=== PATIENT | female | born 1980 | race African-American/Black ===

== ENCOUNTER 2016-10-16 21:37 | Emergency (ER) | payer OTHER ==
[~2016-10-16] VITALS: Ht 177.8 cm; Wt 64.9 kg
[~2016-10-16 21:37] MED LIST: FOLATE1 MG PO; MEXATE2.5 MG; MOTRIN800 MG PO; PLAQUENIL200 M1 PO; VITAMIN D1000 IU PO
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
--- NOTE | 2016-10-16 22:04 | NUR ---
CALLED PATIENT AGAIN, NO RESPONSE
[2016-10-16 22:24] VITALS: BP 149/66
--- NOTE | 2016-10-16 22:32 | NUR ---
PT TAKEN TO OF
--- NOTE | 2016-10-16 22:33 | NUR ---
Dr. Melvin evaluating patient at bedside.
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
--- NOTE | 2016-10-16 22:39 | NUR ---
PT TAKEN TO CT
--- NOTE | 2016-10-16 23:15 | NUR ---
PATIENT AGREED FOR [place] [facility] TO BE INFORMED OF T/C. CALLED [place] #[id number]
[2016-10-16 23:17] VITALS: BP 132/70
--- NOTE | 2016-10-16 23:17 | NUR ---
Patient discharged with v/s stable. Written and verbal after care instructions given and explained BY DR. KING. Patient alert, oriented and verbalized understanding of instructions. Ambulatory with steady gait. All questions addressed prior to discharge. ID band removed. Patient advised to follow up with PMD. Rx of NAPROSYN given. Patient educated on indication of medication including possible reaction and side effects. Opportunity to ask questions provided and answered.
== END 2016-10-16 23:17 | disposition home or self-care (01) ==
LOC: MED 21:37
DX: S09.90XA Unspecified injury of head, initial encounter (principal); Z79.899 Other long term (current) drug therapy; V89.2XXA Person injured in unspecified motor-vehicle accident, traffic, initial encounter; Y93.89 Activity, other specified; Y92.89 Other specified places as the place of occurrence of the external cause; Y99.8 Other external cause status

== ENCOUNTER 2018-10-04 11:22 | Inpatient (IN) | payer OTHER ==
[~2018-10-04] VITALS: Ht 172.7 cm; Wt 64.9 kg
--- NOTE | 2018-10-04 | NUR ---
PT GIVEN NEW ORDER OF NITRO PASTE AND LISNOPRIL 5MG. PT V/S FOLLOWS T 98.1 P 54 R 18 B/P 131/93 02 100% ON ROOM AIR.
[~2018-10-04 11:22] MED LIST changes: -FOLATE1 MG PO; +FOLI1TAB19 PO; +HYDR200T5 PO; +IBUP-974 PO; +MEX2.5; -MEXATE2.5 MG; -MOTRIN800 MG PO; -PLAQUENIL200 M1 PO; -VITAMIN D1000 IU PO; +VITD1000 PO
[2018-10-04 11:27] VITALS: BP 126/86
--- NOTE | 2018-10-04 11:30 | NUR ---
PT AMBULATES TO BED 9
--- NOTE | 2018-10-04 11:39 | NUR ---
38 Y/O F WITH C/O CHEST PAIN. EXPERIENCING CHEST TIGHTNESS AND ACHING. 8/10 RADIATES TO EPIGASTRIC AREA. SYMPTOMS BEGAN THIS MORNING. MD NOTIFIED. WILL CONTINUE TO MONITOR.
[2018-10-04] MEDS ORDERED: NACL 0.9% 1,000 ML IV SCH (11:52)
[2018-10-04] MEDS ORDERED: FAMOTIDINE 20 MG/2 ML VIAL IVP ONE (11:55)
[2018-10-04] MEDS ORDERED: KETOROLAC 30 MG/ML VIAL IVP ONE (11:55)
[2018-10-04 12:18] LABS: BASOPHILS % (AUTO) 0.3 % (0.0-2.0); EOSINOPHILS % (AUTO) 1.2 % (0.0-4.0); HEMATOCRIT 37.3 % (36-48); HEMOGLOBIN 12.3 g/dL (12.0-16.0); LYMPHOCYTES # (AUTO) 1.2 K/uL (2.5-16.5); LYMPHOCYTES % (AUTO) 35.7 % (20.5-51.1); MEAN CORPUSCULAR HEMOGLOBIN 28 pg (27-31); MEAN CORPUSCULAR HGB CONC 33 g/dL (33-37); MEAN CORPUSCULAR VOLUME 84.9 fL (80-94); MONOCYTES # (AUTO) 0.3 K/uL (0.8-1.0); MONOCYTES % (AUTO) 9.7 % (1.7-9.3); NEUTROPHILS # (AUTO) 1.8 K/uL (1.8-7.7); NEUTROPHILS % (AUTO) 53.1 % (42.2-75.2); PLATELET COUNT (AUTO) 144 K/uL (140-450); RED BLOOD CELL COUNT(AUTO) 4.39 MIL/uL (4.20-5.40); RED CELL DISTRIBUTION WIDTH 16.4 % (11.6-13.7); WHITE BLOOD COUNT (AUTO) 3.4 K/uL (4.8-10.8)
[2018-10-04 12:22] LABS: CARBON DIOXIDE 26.9 mmol/L (21-32); CREATININE 0.9 mg/dL (0.6-1.3); POTASSIUM 3.9 mmol/L (3.5-5.1)
[2018-10-04 12:25] LABS: PROTHROMBIN TIME 10.4 secs (10.8-13.4)
[2018-10-04 12:26] LABS: C-REACTIVE PROTEIN QUANT < 0.2 mg/dL (0.0-0.9); MAGNESIUM 1.9 mg/dL (1.8-2.4)
[2018-10-04 12:28] LABS: ALBUMIN 3.4 g/dL (3.4-5.0); TOTAL BILIRUBIN 0.4 mg/dL (0.0-1.0)
[2018-10-04 12:43] LABS: D-DIMER < 100 ng/ml (0-400)
[2018-10-04] MEDS ORDERED: LOVENOX 1MG/KG Q24H SUBQ ONE (13:00)
--- NOTE | 2018-10-04 13:35 | NUR ---
UPON INFORMING PT OF PENDING ADMISSION; PT STATED SHE WILL SIGN AMA WISHES NOT TO BE ADMITTED. NOTIFIED
[2018-10-04] MEDS ORDERED: ENOXAPARIN 100 MG/ML SYR SUBQ ONE (13:41)
--- NOTE | 2018-10-04 13:53 | NUR ---
PT'S CONCERN IS SHE LOCKED HER DOOR AT HOME AND 13YR OLD SON WILL BE HOME SOON. SHE WANTS TO GO AND UNLOCK DOOR AND RETURN. PT WAS INFORMED OF RISK OF LEAVING AGAINST MEDICAL ADVICE MORESO SINCE HER TROPONIN IS CURRENTLY 0.3
[2018-10-04] MEDS ORDERED: MORPHINE SULFATE 2 MG/ML SYR IVP PRN (14:05)
[2018-10-04] MEDS ORDERED: HYDROcodone/APAP 5/325 MG 1 TAB TAB PO PRN (14:05)
[2018-10-04] MEDS ORDERED: ALBUTEROL 0.083% 2.5 MG/3 ML NEBU IH PRN (14:05)
[2018-10-04] MEDS ORDERED: ACETAMINOPHEN 325 MG TAB PO PRN (14:05)
[2018-10-04] MEDS ORDERED: NITROGLYCERIN 0.4 MG TAB SL PRN (14:05)
[2018-10-04] MEDS ORDERED: ZOLPIDEM 5 MG TAB PO PRN (14:05)
[2018-10-04] MEDS ORDERED: ONDANSETRON 4 MG/2 ML VIAL IVP PRN (14:05)
--- NOTE | 2018-10-04 14:25 | NUR ---
PT RECEIVED FROM ER NURSE. PT IS IN BED RESTING COMFORTABLY. TOOK PTS VITALS. PT IS IN NO APPARENT DISTRESS. PT IS A&O X4. ALL SAFETY MEASURES ARE IN PLACE. WILL CONTINUE TO MONITOR PT.
[2018-10-04 14:38] LABS: APPEARANCE,URINE SL CLOUDY (CLEAR); BILIRUBIN,URINE NEGATIVE (NEGATIVE); BLOOD, URINE TRACE-I (NEGATIVE); COLOR,URINE YELLOW (YELLOW); LEUKOCYTE ESTERASE ,URINE 1+ (NEGATIVE); NITRITE, URINE POSITIVE (NEGATIVE); PH,URINE 7.5 (5.0-9.0); UGLUCOSE NEGATIVE (NEGATIVE)
--- NOTE | 2018-10-04 14:41 | NUR ---
PT TAKEN TO TELE FLOOR BY RNS THEODORE AND BRITTANY, AND EMT MARANDA
[2018-10-04 14:50] LABS: RBC,URINE 0 /HPF (0-5); WBC,URINE 16-25 (MOD) /HPF (0-5)
--- NOTE | 2018-10-04 14:50 | NUR ---
PT TRANSFERED TO [facility]. VSS. REPORT GIVEN TO KATHRYN CARDONA.
[2018-10-04] MEDS ORDERED: ASPIRIN 325 MG TABEC PO SCH (15:00)
[2018-10-04 15:09] LABS: BARBITURATE, URINE NEG. ng/ml (NEG <=200); BENZODIAZEPINE, URINE NEG. ng/mL (NEG <=200); CANNABINOID, URINE POS. ng/mL (NEG <=50); COCAINE, URINE NEG. ng/mL (NEG <=300); OPIATE, URINE NEG. ng/mL (NEG <=2000); PHENCYCLIDINE SCREEN,URINE NEG. ng/mL (NEG <=25)
--- NOTE | 2018-10-04 15:20 | NUR ---
COMPLETED ADMISSION PROCESS. EXPLAINED TESTS/PROCEDURES W PT.
[2018-10-04 15:54] VITALS: BP 129/89
--- NOTE | 2018-10-04 16:05 | NUR ---
DESEANHAN ORDERED PENDING PHARMACY VERIFICATION. WILL ADMINISTER WHEN VERIFIED.
--- NOTE | 2018-10-04 17:00 | NUR ---
PT RESTING COMFORTABLY IN BED. PT TOOK HER MOTRIN PER ORDERS. NO COMPLAINTS OF PAIN. WILL CONT. TO MONITOR
[2018-10-04] MEDS: IBUPROFEN 800 MG TAB PO SCH ×2 (17:15→21:08)
[2018-10-04] MEDS ORDERED: cefTRIAXone 1,000 MG VIAL ONE (18:07)
--- NOTE | 2018-10-04 18:24 | NUR ---
ASSESSED PTS IV ACCESS. IV ASSESS IS PATENT AND FLUSHES EASILY. HUNG PTS IVPIGGY ANTIBIOTICS. PT WAS IN BED EATING HER DINNER. WILL CONTINUE TO MONITOR.
--- NOTE | 2018-10-04 19:06 | NUR ---
PT STATED SHE HAD CHEST PAIN. STATED CHEST TIGHTNESS BP 122/76. GAVE PT NITRO. WILL PLACE THE PT ON 2L NASAL CANULA. WILL CONTINUE TO MONITOR.
--- NOTE | 2018-10-04 19:33 | NUR ---
PT STATES CHEST PAIN IS UNRELIEVED BY NITRO. 11/11 TIGHTNESS. PT SPEAKS CLEARLY REPSPIRATIONS UNLABORED. APPEARS IN NO ACUTE DISTRESS. PT ASKED TO TAKE O2 OFF. PT DECLINES OFFER FOR FURTHER MEDICATION. PT COMPLAINS OF ABD DISCOMFORT. PT STATES IT FEELS LIKE SHE HAS TO HAVE A BM. PT IS UP TRYING TO GO TO THE BATHROOM. REPORT GIVEN TO NIGHTSHIFT NURSE
--- NOTE | 2018-10-04 19:33 | NUR ---
[PT IN BED AOX4, SHE HAS HER BELLY FEELS IN DISCOMFORT 2-3 BUT SHE DOESNT WANT ANY PAIN MEDS. PT DENIES CHEST PAIN. V/S FOLLOWS T 98.4 P 61 R 18 B/P 127/99 02 100% ON ROOM AIR.
[2018-10-04 20:00] VITALS: BP 127/99
[2018-10-04 20:34] LABS: CREATINE KINASE MB 8.1 ng/mL (0-3.6)
[2018-10-04] MEDS ORDERED: SIMVASTATIN 20 MG TAB PO SCH (21:00)
[2018-10-04] MEDS: HYDROXYCHLOROQUINE 200 MG TAB PO SCH (21:10)
[2018-10-04] MEDS: METOPROLOL 25 MG TAB PO SCH (21:15)
--- NOTE | 2018-10-04 22:00 | NUR ---
LAB CALLED TO REPORT TROPONIN LEVEL OF 2.065. DR. VENTURA WAS CALLED [facility] DOCTOR PAGED DR. GARCIA. AWAITING CALL BACK REGARDING ELEVATED TROPONIN LEVEL.
--- NOTE | 2018-10-04 22:20 | NUR ---
DR. GARCIA CALLED BACK, PRIMARY NURSE TOLD MD OF HIGH TROPONIN LEVEL OF 2.065. DR. GARCIA SAID IT WAS A CARDAC ISSUE GAVE NO NEW ORDERS. HE DID HOWEVER, DEFAULT TO CARDIAC PALIWAL. ACCOUNT EXECUTIVE FOR PALIWAL WAS DR. LOWE. AWAITING CALL BACK FROM [facility].
[2018-10-04] MEDS ORDERED: HEPARIN PER PHARMACY MC PRN (22:45)
[2018-10-04] MEDS ORDERED: hePARIN / DEXT 5% PREMIX 250 ML IV SCH (22:45)
[2018-10-04] MEDS ORDERED: LISINOPRIL 5 MG TAB PO SCH (23:00)
--- NOTE | 2018-10-04 23:00 | NUR ---
NEW MEDS ORDERD FOR NOW AND TOMMORROW AND NITRO PASTE ORDERED FOR ANGINA MAYA GAVE NEW ORDERS FOR NPO, TO START HEPARIN GTT, AND TO GIVEN 1X DOSE OF LISNOPRIL. ALSO NEW ORDERS FOR AM BLOOD PRESSURE MEDICATIONS.
[2018-10-04] MEDS: NITROGLYCERIN 2% 1 GM PKT TP SCH (23:11)
[2018-10-05] VITALS: BP 131/93
[2018-10-05] MEDS ORDERED: LISINOPRIL 5 MG TAB PO SCH ×2 (00:05→09:00)
[2018-10-05] MEDS: NITROGLYCERIN 2% 1 GM PKT TP SCH (00:08)
[2018-10-05] MEDS: hePARIN / DEXT 5% PREMIX 250 ML IV SCH ×2 (01:14→09:33)
--- NOTE | 2018-10-05 01:15 | NUR ---
HEPARIN GTT STARTED. INITAL BOLUS GIVEN AND DRIP STATED AT 8MLS/HR OR 800 UNITS.
[2018-10-05 04:00] VITALS: BP 127/99
--- NOTE | 2018-10-05 04:00 | NUR ---
PT IN BED, C/O OF ORIANA IN ABDOMEN SHE IS C/O OF TAKING TOO MANY PILLS ON EMPTY STOMACH AND HER STOMACH FEELS QUEAZY, GIVEN ZOFRAN IVP V/S FOLLOWS T 97.7 P 50 R 18 B/P 114/65 02 100% ON ROOM AIR.
[2018-10-05 04:20] LABS: ALBUMIN 3.1 g/dL (3.4-5.0); ANION GAP 11.6 (8-16); CARBON DIOXIDE 26.4 mmol/L (21-32); CREATININE 0.8 mg/dL (0.6-1.3); TOTAL BILIRUBIN 0.5 mg/dL (0.0-1.0)
--- NOTE | 2018-10-05 05:07 | NUR ---
RECEIVED CALL FROM LAB THAT TROPONIN WENT DOWN TO 1.553.
[2018-10-05] MEDS ORDERED: NITROGLYCERIN 2% 1 GM PKT TP SCH (06:00)
[2018-10-05 06:35] LABS: BASOPHILS % (AUTO) 1.3 % (0.0-2.0); EOSINOPHILS % (AUTO) 1.5 % (0.0-4.0); HEMATOCRIT 35.2 % (36-48); HEMOGLOBIN 11.4 g/dL (12.0-16.0); LYMPHOCYTES # (AUTO) 1.5 K/uL (2.5-16.5); LYMPHOCYTES % (AUTO) 51.9 % (20.5-51.1); MEAN CORPUSCULAR HEMOGLOBIN 28 pg (27-31); MEAN CORPUSCULAR HGB CONC 32 g/dL (33-37); MEAN CORPUSCULAR VOLUME 85.4 fL (80-94); MONOCYTES # (AUTO) 0.2 K/uL (0.8-1.0); MONOCYTES % (AUTO) 8.5 % (1.7-9.3); NEUTROPHILS # (AUTO) 1.1 K/uL (1.8-7.7); NEUTROPHILS % (AUTO) 36.8 % (42.2-75.2); PLATELET COUNT (AUTO) 137 K/uL (140-450); RED BLOOD CELL COUNT(AUTO) 4.12 MIL/uL (4.20-5.40); RED CELL DISTRIBUTION WIDTH 16.4 % (11.6-13.7); WHITE BLOOD COUNT (AUTO) 2.9 K/uL (4.8-10.8)
--- NOTE | 2018-10-05 07:30 | NUR ---
RECEIVED BEDSIDE REPORT FROM CHANNEL PROCESS PLANT OPERATOR NURSE. PATIENT IS AWAKE, ALERT AND ORIENTEDX4. NO SIGNS OF DISTRESS ON RA. TELE MONITOR IN PLACE. PATIENT IS AMBULATORY. GAIT IS STEADY. IV ON R FA 22G INFUSING HEPARIN DRIP AT 8ML/HR. CLEAN, DRY AND INTACT. SKIN IS INTACT. PATIENT IS CONTINENT. NPO IN CASE SHE NEEDS A CARDIAC PROCEDURE. BED IN LOW POSITION. CALL LIGHT WITHIN REACH
[2018-10-05 08:00] VITALS: BP 127/77
[2018-10-05] MEDS: METOPROLOL 25 MG TAB PO SCH (08:13)
--- NOTE | 2018-10-05 08:41 | NUR ---
PATIENT HAS BEEN SCREENED AND CATEGORIZED MODERATE NUTRITION RISK. PATIENT WILL BE SEEN WITHIN 3-5 DAYS OF ADMISSION. 10/07/18PAULA CORRE[address]
[2018-10-05] MEDS: HYDROXYCHLOROQUINE 200 MG TAB PO SCH (08:43)
[2018-10-05] MEDS: IBUPROFEN 800 MG TAB PO SCH (08:44)
--- NOTE | 2018-10-05 08:53 | NUR ---
ADMINISTERED MEDS. PATIENT TOLERATED WELL. WILL CONTINUE TO MONITOR THE PATIENT. PATIENT IS HUNGRY AND WANTS TO KNOW IF SHE CAN EAT. PER FUNERAL ARRANGEMENT DIRECTOR NURSE. SENIOR BI DEVELOPER MAINTENANCE SUPERINTENDENT SAID TO KEEP HER NPO. WILL CALL DR GOYAL TO SEE IF PATIENT IS OK TO EAT.
[2018-10-05] MEDS ORDERED: FUROSEMIDE 20 MG TAB PO SCH (09:00)
[2018-10-05] MEDS ORDERED: FOLIC ACID 1 MG TAB PO SCH (09:00)
[2018-10-05] MEDS ORDERED: CHOLECALCIFEROL 1,000 IU TAB PO SCH (09:00)
[2018-10-05] MEDS ORDERED: ENOXAPARIN 40 MG/0.4 ML SYR SUBQ SCH (09:00)
[2018-10-05] MEDS ORDERED: ASPIRIN 81 MG TAB.CHEW PO SCH (09:00)
[2018-10-05] MEDS ORDERED: ASPIRIN 325 MG TABEC PO SCH (09:00)
--- NOTE | 2018-10-05 09:30 | NUR ---
DR GOYAL CALLED BACK. HE SAID PATIENT NEEDS TO CONTINUE TO BE NPO. HE IS TRANSFERRED HER TO [facility] FOR CARDIAC CATH
--- NOTE | 2018-10-05 10:10 | NUR ---
MALLORY NOTE RECEIVED ORDER TO TRANSFER TO [facility] FOR CARDIAC CATH. I CONFIRMED WITH ASHLEY OF [facility] BREAK OFF WORKER PH# [phone] THAT PATIENT HAS A SCHEDULED PROCEDURE FOR CARDIAC CATH TODAY AT 1500 TIME AND HAS TO BE AT THEIR ER BY 12 NOON TODAY. ASHLEY REQUESTED FOR THE ORDER AND CLINICAL PACKET BE FAXED TO HER AT [phone]. FAXED INFO. PER [facility] MALLORY [place]ULUAGA PH# [phone] FOR [facility] MED TRANSPORT AUTH# [id number], FOR [facility] AUTH# [id number]. PER IVY OF [facility]) PH# [phone], THE PATIENT WILL BE PICKED UP AT 1115 TIME, [facility] TRANSPORT, TO GO TO [facility] BREAK OFF WORKER TO PASS BY THEIR ER FIRST. CHARGE NURSE BISI PERALTA AWARE.
--- NOTE | 2018-10-05 10:30 | NUR ---
GAVE TELEPHONE REPORT TO JONO PERALTA IN [facility]. ANSWERED ALL QUESTIONS AT THIS TIME. GAVE CALL BACK NUMBER TO NURSE.
--- NOTE | 2018-10-05 11:30 | NUR ---
EDUCATED PATIENT ON DISEASE PROCESS, EDUCATED ON CARDIAC CATH W RISKS AND BENEFITS W DR GOYAL, EDUCATED ON MEDS, EDUCATED ON FOLLOW UP W PCP, EDUCATED ON REFUSAL OF PNA AND FLU VACCINE. PATIENT VERBALIZED UNDERSTANDING AND SIGNED ALL PAPERWORK. ID BAND REMOVED. TELE REMOVED.
[2018-10-05] MEDS ORDERED: amLODIPine 5 MG TAB PO SCH (12:00)
[2018-10-05] MEDS ORDERED: METOPROLOL SUCCINATE 50 MG TABER PO SCH (21:00)
== END 2018-10-05 11:30 | disposition short-term general hospital (02) | DRG 190 ==
LOC: MED 11:22 → MTU 14:33
PROVIDERS: ADMIT Hospitalist; ATTEND Hospitalist
DX: I21.4 Non-ST elevation (NSTEMI) myocardial infarction (principal); M32.9 Systemic lupus erythematosus, unspecified; F17.210 Nicotine dependence, cigarettes, uncomplicated; N39.0 Urinary tract infection, site not specified; L80 Vitiligo
CPT/HCPCS: 36415; 71045; 80053; 80305; 81001; 81025; 82150; 82550; 82553; 83690; 83735; 83880; 84484; 84703; 85025; 85379; 85610; 85651; 85730; 86140; 87081; 87086; 87186; 93005; 96361; 96372; 96374; 96375; 99285; J0696; J1644; J1650; J1885; J2405; J3490; J7030; J7060; Q0092

== ENCOUNTER 2018-10-13 01:10 | Observation (INO) | payer OTHER ==
[~2018-10-13] VITALS: Ht 175.3 cm; Wt 66.7 kg
[2018-10-13 01:20] VITALS: BP 110/83
--- NOTE | 2018-10-13 01:24 | NUR ---
PT AMBULATED TO THE RESTROOM AND THEN TO BED #2, GAVE RN REPORT
--- NOTE | 2018-10-13 01:24 | NUR ---
PT PRESENTS TO ED WITH CHEST PRESSURE PAIN 01/11 X2 HRS. X4 STENTS PLACED ON 10/06/18. NO N/V, NO SOB/DYSPNEA. PT STATES ACTIVE AND WORKING WHEN CHEST PAIN BEGAN. VSS. POSITIONED IN BED WITH HOB ELEVATED AND SIDE RAILS UP. ER MD AWARE. CONTINUE TO MONITOR.
[2018-10-13] MEDS ORDERED: NACL 0.9% 1,000 ML IV ONE (01:30)
[2018-10-13] MEDS ORDERED: ASPIRIN 81 MG TAB.CHEW PO ONE (01:30)
[2018-10-13 01:50] LABS: EOSINOPHILS % (AUTO) 1.3 % (0.0-4.0); HEMATOCRIT 37.6 % (36-48); HEMOGLOBIN 12.2 g/dL (12.0-16.0); LYMPHOCYTES # (AUTO) 1.2 K/uL (2.5-16.5); MEAN CORPUSCULAR HEMOGLOBIN 28 pg (27-31); MEAN CORPUSCULAR HGB CONC 32 g/dL (33-37); MEAN CORPUSCULAR VOLUME 86.2 fL (80-94); MONOCYTES # (AUTO) 0.4 K/uL (0.8-1.0); MONOCYTES % (AUTO) 12.1 % (1.7-9.3); NEUTROPHILS # (AUTO) 1.4 K/uL (1.8-7.7); NEUTROPHILS % (AUTO) 45.6 % (42.2-75.2); PLATELET COUNT (AUTO) 187 K/uL (140-450); RED BLOOD CELL COUNT(AUTO) 4.36 MIL/uL (4.20-5.40); RED CELL DISTRIBUTION WIDTH 16.8 % (11.6-13.7)
[2018-10-13] MEDS ORDERED: NITROGLYCERIN 2% 1 GM PKT TP ONE (01:50)
[2018-10-13 02:00] LABS: ANION GAP 9.4 (8-16); CARBON DIOXIDE 29.5 mmol/L (21-32); CREATININE 0.9 mg/dL (0.6-1.3); POTASSIUM 3.9 mmol/L (3.5-5.1)
[2018-10-13 02:06] LABS: ALBUMIN 3.8 g/dL (3.4-5.0); TOTAL BILIRUBIN 0.3 mg/dL (0.0-1.0)
[2018-10-13 02:08] LABS: PROTHROMBIN TIME 9.9 secs (10.8-13.4)
[2018-10-13] MEDS ORDERED: MORPHINE SULFATE 4 MG/ML SYR IVP ONE (02:45)
[2018-10-13] MEDS ORDERED: ACETAMINOPHEN 325 MG TAB PO PRN (02:55)
[2018-10-13] MEDS ORDERED: HYDROcodone/APAP 5/325 MG 1 TAB TAB PO PRN (02:55)
[2018-10-13] MEDS ORDERED: LORazepam 2 MG/ML VIAL IVP PRN (02:55)
[2018-10-13] MEDS ORDERED: ONDANSETRON 4 MG/2 ML VIAL IVP PRN (02:55)
[2018-10-13] MEDS ORDERED: NITROGLYCERIN 0.4 MG TAB SL PRN (02:55)
[2018-10-13] MEDS ORDERED: ZOLPIDEM 5 MG TAB PO PRN (02:55)
[2018-10-13] MEDS ORDERED: MORPHINE SULFATE 2 MG/ML SYR IVP PRN (02:55)
--- NOTE | 2018-10-13 03:35 | NUR ---
RECEIVED BEDSIDE REPORT FROM ADJUNCT PROFESSOR OF VOICE JIMY. PT IS AAO X4. ON ROOM AIR. RESPIRATIONS ARE EQUAL AND UNLABORED. DENIES ANY SOB OR PAIN AT THIS TIME. PT AMBULATED FROM RNEY TO BED. GAIT IS STEADY. SKIN INTACT. PT WAS HERE A WEEK AGO FOR SAME C/C ANGINA PT WAS TRANSFERRED TO [place] AND HAD STENT PLACEMENT X4 ON 10/06/18. FIRST TROPONIN IS NEGATIVE. VS: 136/76 HR 76 RR 16 98.2 99% RA. IV ON L AC 20G SL. PLAN OF CARE DISCUSSED WITH PT. CALL LIGHT WITHIN REACH.
--- NOTE | 2018-10-13 03:38 | NUR ---
REPORT GIVEN AND CARE TRANSFERED TO SELMA PERALTA. TRANSFERED VIA GURNEY WITH VSS.
[2018-10-13 03:49] VITALS: BP 136/76
--- NOTE | 2018-10-13 04:55 | NUR ---
PT SLEEPING COMFORTABLY IN BED. NO S/S OF DISTRESS. CALL LIGHT WITHIN REACH.
--- NOTE | 2018-10-13 06:15 | NUR ---
PT RESTING COMFORTABLY IN BED. RESPIRATIONS ARE EQUAL AND UNLABORED. CALL LIGHT WITHIN REACH.
--- NOTE | 2018-10-13 07:30 | NUR ---
GAVE BEDSIDE REPORT. PT ENDORSED IN STABLE CONDITION.
--- NOTE | 2018-10-13 07:31 | NUR ---
RECEIVED BEDSIDE REPORT FROM KATHRYN COLLAZO. PATIENT ON TELE MONITOR AND STANDARD PRECAUTIONS IN PLACE. PATIENT AAOX4. PATIENT ON ROOM AIR, NO DISTRESS NOTED. SKIN INTACT. IV ON L AC 20 G SALINE LOCK. IV ASYMPTOMATIC, PATENT AND INTACT. BED IN LOW POSITION, CALL LIGHT WITHIN REACH, SIDE RAILS X2 UP. WILL CONTINUE TO MONITOR.
[2018-10-13 08:00] VITALS: BP 100/62
--- NOTE | 2018-10-13 08:03 | NUR ---
PATIENT HAS BEEN SCREENED AND CATEGORIZED MODERATE NUTRITION RISK. PATIENT WILL BE SEEN WITHIN 3-5 DAYS OF ADMISSION. 10/15/18PAUL[address] COR[address]
[2018-10-13] MEDS ORDERED: CHOLECALCIFEROL 1,000 IU TAB PO SCH (09:00)
[2018-10-13] MEDS ORDERED: HYDROXYCHLOROQUINE 200 MG TAB PO SCH (09:00)
[2018-10-13] MEDS ORDERED: METOPROLOL 25 MG TAB PO SCH (09:00)
[2018-10-13] MEDS ORDERED: CLOPIDOGREL 75 MG TAB PO SCH (09:00)
[2018-10-13] MEDS ORDERED: FOLIC ACID 1 MG TAB PO SCH (09:00)
[2018-10-13] MEDS ORDERED: ENOXAPARIN 40 MG/0.4 ML SYR SUBQ SCH (09:00)
--- NOTE | 2018-10-13 09:48 | NUR ---
ADMINISTERED SCHEDULED MEDS. PATIENT TOLERATED WELL. WILL CONTINUE TO MONITOR. Addendum: 10/13/18 at 0954 by Daphney Burgos RN HELD METOPROLOL SINCE BP 100/62 AND HR 58.
--- NOTE | 2018-10-13 10:42 | NUR ---
CM NOTE I SPOKE WITH FREDI OF [facility]# [phone] TO SCHEDULE THE PATIENT'S OUTPATIENT FOLLOW UP APPOINTMENT. PER FREDI, PATIENT TO SEE DR. ARELIS WHALEN ON OCTOBER 20, 2018 1:15 PM AT THE CLINIC AT [address] [place] [address]. I GAVE THE PATIENT HER OUTPATIENT FOLLOW UP SCHEDULE.
[2018-10-13 10:54] LABS: CREATINE KINASE MB 0.7 ng/mL (0-3.6)
[2018-10-13] MEDS ORDERED: CLOP75TA55 PO (11:02)
[2018-10-13] MEDS ORDERED: SIMV20TA6 PO (11:02)
[2018-10-13] MEDS ORDERED: ASPI81CT95 PO (11:02)
[2018-10-13 12:00] VITALS: BP 109/65
--- NOTE | 2018-10-13 12:01 | NUR ---
PATIENT SLEEPING AT THIS TIME. ON ROOM AIR, NO DISTRESS NOTED. WILL CONTINUE TO MONITOR.
--- NOTE | 2018-10-13 12:56 | NUR ---
PROVIDED PATIENT WITH DISCHARGE INSTRUCTIONS. EDUCATED PATIENT TO FOLLOW UP WITH PCP WITHIN 5-7 DAYS. PATIENT WITH COPY OF SCHEDULED APPOINTMENT ON OCTOBER 20, 2018. EDUCATED TO RETURN TO NEAREST ER WHEN EXPERIENCING SOB, FEVER, PAIN ETC. PATIENT REFUSED BOTH PNA AND FLU VACCINES. EDUCATED ON IMPORTANCE OF VACCINES, BUT STILL REFUSED. REMOVED WRIST BANDS AND IV, IV TIP INTACT. ANSWERED ALL QUESTIONS AND CONCERNS. PATIENT VERBALIZED UNDERSTANDING. WILL CONTINUE TO MONITOR.
[2018-10-13] MEDS ORDERED: SIMVASTATIN 20 MG TAB PO SCH (21:00)
[2018-10-14] MEDS ORDERED: ASPIRIN 81 MG TAB.CHEW PO SCH (09:00)
== END 2018-10-13 13:06 | disposition home or self-care (01) ==
LOC: MED 01:10 → MTU 02:57
PROVIDERS: ADMIT Hospitalist; ATTEND Hospitalist
DX: R07.89 Other chest pain (principal); I25.10 Atherosclerotic heart disease of native coronary artery without angina pectoris; M06.9 Rheumatoid arthritis, unspecified; L80 Vitiligo; M32.9 Systemic lupus erythematosus, unspecified; E87.1 Hypo-osmolality and hyponatremia; Z79.899 Other long term (current) drug therapy
CPT/HCPCS: 36415; 71045; 80053; 81025; 82550; 82553; 84484; 85025; 85610; 85730; 87081; 93005; 96361; 96372; 96374; 99285; G0378; J1650; J2270; Q0092

== ENCOUNTER 2018-11-18 22:47 | Emergency (ER) | payer OTHER ==
[~2018-11-18] VITALS: Ht 175.3 cm; Wt 68.0 kg
[~2018-11-18 22:47] MED LIST changes: +ASPI81CT95 PO; +CLOP75TA55 PO; +SIMV20TA6 PO
[2018-11-18 22:56] VITALS: BP 118/76
--- NOTE | 2018-11-18 22:57 | NUR ---
TO BED # 09 AMBULATORY, REPORT GIVEN TO EKTA PERALTA
--- NOTE | 2018-11-18 23:10 | NUR ---
BIB self with complaint of itchy rash on middle of upper back x7 days. Rash red, dry and scabbed upon observation. denies other symptoms at this time.
[2018-11-19] MEDS ORDERED: HYDROcodone/APAP 5/325 MG 1 TAB TAB PO ONE (00:05)
[2018-11-19 00:30] VITALS: BP 118/76
--- NOTE | 2018-11-19 00:31 | NUR ---
Patient discharged with v/s stable. Written and verbal after care instructions given and explained. Patient alert, oriented and verbalized understanding of instructions. Ambulatory with steady gait. All questions addressed prior to discharge. ID band removed. Patient advised to follow up with PMD. Rx of APROSYN, BACITRACIN, NORCO, ACYCLOVIR given. Patient educated on indication of medication including possible reaction and side effects. Opportunity to ask questions provided and answered.
== END 2018-11-19 00:31 | disposition home or self-care (01) ==
LOC: MED 22:47
DX: R21 Rash and other nonspecific skin eruption (principal); L29.9 Pruritus, unspecified; Z79.899 Other long term (current) drug therapy
CPT/HCPCS: 99283

== ENCOUNTER 2018-12-01 07:47 | Emergency (ER) | payer OTHER ==
[~2018-12-01] VITALS: Ht 175.3 cm; Wt 63.5 kg
[2018-12-01 07:52] VITALS: BP 124/84
--- NOTE | 2018-12-01 08:11 | NUR ---
PATIENT AMBULATED TO BED 11.
--- NOTE | 2018-12-01 08:19 | NUR ---
38 Y FEMALE WITH SON C/O DIZZINESS AND SWEATING X 0 AT WORK WHILE PACKING BOXES. NO SOB, NO CHEST PAIN. DIZZINESS EPISODE LASTED APPROX 20 MINS. ACCUCHECK 80. 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 AA0X4. VSS AT THIS TIME. BED IS DOWN, LOCKED, BED RAIL X 1, ERMD TO EVALUATE. HX: AK 10/2018, 4 STENTS, LUPUS, SHINGLES RX: SIMVASTATIN, ASA, PLAVIX, PLAQUINIL, PREDNISONE, ACYCLOVIR, BENADRYL, NORCO
--- NOTE | 2018-12-01 08:20 | NUR ---
PT STATES SHE HAS NO SYMPTOMS AT THIS TIME. STATES HER WORK REQUIRES A NOTE IN ORDER TO REETURN.
--- NOTE | 2018-12-01 08:21 | NUR ---
dr foster at bedside
[2018-12-01 08:45] VITALS: BP 122/83
--- NOTE | 2018-12-01 08:45 | NUR ---
Patient discharged with v/s stable. Written and verbal after care instructions given and explained. Patient verbalized understanding. Ambulatory with steady gait. All questions addressed prior to discharge. Advised to follow up with PMD.
== END 2018-12-01 08:45 | disposition home or self-care (01) ==
LOC: MED 07:47
DX: M32.9 Systemic lupus erythematosus, unspecified (principal); F17.200 Nicotine dependence, unspecified, uncomplicated; Z79.899 Other long term (current) drug therapy
CPT/HCPCS: 82948; 93005; 99283

== ENCOUNTER 2019-08-17 04:29 | Emergency (ER) | payer OTHER ==
[~2019-08-17] VITALS: Ht 175.3 cm; Wt 61.2 kg
[~2019-08-17 04:29] MED LIST changes: +SIMV-30 PO; -SIMV20TA6 PO
[2019-08-17 04:34] VITALS: BP 124/66
--- NOTE | 2019-08-17 04:34 | NUR ---
to bed # 02 ambulatory
--- NOTE | 2019-08-17 04:50 | NUR ---
39 YEAR OLD FEMALE COMPLAINS OF 6/10 PAIN IN RIGHT KNEE. PATIENT STATES THAT SHE SLIPPED ON OIL YESTERDAY AND THEN FELL, DENIES HITTING HEAD. RIGHT KNEE ABRASION NOTED, NO DISCHARGE, SOME SWELLING. PATIENT ALERT AND ORIENTED, BREATHING EVEN AND UNLABORED, SKIN WARM AND DRY. BED IN LOWEST POSITION, LOCKED, BED RAIL UPX1. PMH - LUPUS MEDS - METHOTREXATE, PREDNISONE, PLAQUENIL, SIMVASTATIN, ASPIRIN ALLERGIES - NKA
[2019-08-17 05:48] VITALS: BP 120/64
--- NOTE | 2019-08-17 05:48 | NUR ---
Patient discharged with v/s stable. Written and verbal after care instructions ABOUT ABRASION AND BONE BRUISE given and explained. Patient alert, oriented and verbalized understanding of instructions. Ambulatory with steady gait. All questions addressed prior to discharge. ID band removed. Patient advised to follow up with PMD. Rx of NAPROSYN given. Patient educated on indication of medication including possible reaction and side effects. Opportunity to ask questions provided and answered.
== END 2019-08-17 05:48 | disposition home or self-care (01) ==
LOC: MED 04:29
DX: S80.01XA Contusion of right knee, initial encounter (principal); X58.XXXA Exposure to other specified factors, initial encounter; Y93.89 Activity, other specified; Y92.89 Other specified places as the place of occurrence of the external cause; Y99.8 Other external cause status; S60.041A Contusion of right ring finger without damage to nail, initial encounter; S60.051A Contusion of right little finger without damage to nail, initial encounter; Z86.79 Personal history of other diseases of the circulatory system; Z79.899 Other long term (current) drug therapy; Z79.82 Long term (current) use of aspirin
CPT/HCPCS: 73140; 73562; 99283; Q0092

== ENCOUNTER 2019-09-12 04:09 | Emergency (ER) | payer OTHER ==
[~2019-09-12] VITALS: Ht 177.8 cm; Wt 65.8 kg
[2019-09-12 04:15] VITALS: BP 129/80
--- NOTE | 2019-09-12 04:15 | NUR ---
TO BED #07 AMBULATORY
--- NOTE | 2019-09-12 04:34 | NUR ---
39YO F C/O FINGER PAIN ON RIGHT MIDDLE FINGER KNUCKLE S/P FALL 2 WEEKS AGO. SCABBED WITH DRY GREEN DISCHARGE. NO DEFORMITIES NOTED, POSITIVE CMS. NO BRUISING OR SWELLING TO FINGER. CAP REFILL <3SECONDS. DENIES NUMBNESS/TINGLING. VSS. MEDHX: LUPUS, 4 CARDIAC STENTS
--- NOTE | 2019-09-12 04:36 | NUR ---
X-Ray at bedside.
[2019-09-12 05:25] VITALS: BP 124/79
--- NOTE | 2019-09-12 05:26 | NUR ---
Patient discharged with v/s stable. Written and verbal after care instructions given and explained. Patient alert, oriented and verbalized understanding of instructions. Ambulatory with steady gait. All questions addressed prior to discharge. ID band removed. Patient advised to follow up with PMD. Rx of NORCO, KEFLEX given. Patient educated on indication of medication including possible reaction and side effects. Opportunity to ask questions provided and answered.
== END 2019-09-12 05:26 | disposition home or self-care (01) ==
LOC: MED 04:09
DX: L02.511 Cutaneous abscess of right hand (principal); Z98.890 Other specified postprocedural states; Z79.82 Long term (current) use of aspirin; Z79.899 Other long term (current) drug therapy
CPT/HCPCS: 26010; 73140; 99283; Q0092

== ENCOUNTER 2019-12-06 07:36 | Emergency (ER) | payer OTHER, SELFPAY ==
[~2019-12-06] VITALS: Ht 162.6 cm; Wt 65.8 kg
[2019-12-06 07:48] VITALS: BP 130/85
--- NOTE | 2019-12-06 08:08 | NUR ---
C/O COUGH, CHEST PAIN X LAST NIGHT.PT AWAKE ,ALERT , AFIBRILE , AMBULATORY WITH STEADY GAIT , SCE , CBS, FLAT SOFT NABS NONTENDER ABDOMEN. MED HX: CARDIAC DISORDER, 4 STENTS, LUPUS, HIGH CHOLESTEROL
--- NOTE | 2019-12-06 08:08 | NUR ---
DR CHANEL AT BEDSIDE EVALUATING PT.
--- NOTE | 2019-12-06 08:09 | NUR ---
EMT SABINO AT BEDSIDE DOING EKG.
--- NOTE | 2019-12-06 08:20 | NUR ---
LABS AT BEDSIDE DRAWING BLOOD.
--- NOTE | 2019-12-06 08:22 | NUR ---
PT REFUSES TO GIVE URINE .
--- NOTE | 2019-12-06 08:25 | NUR ---
XRAY AT BEDSIDE . DR CHANEL INFORMED PT REFUSE TO GIVE URINE.
[2019-12-06 08:53] LABS: C-REACTIVE PROTEIN QUANT < 0.2 mg/dL (0.0-0.9)
[2019-12-06 08:54] LABS: BASOPHILS % (AUTO) 1.1 % (0.0-2.0); EOSINOPHILS % (AUTO) 0.5 % (0.0-4.0); HEMATOCRIT 35.4 % (36-48); HEMOGLOBIN 11.6 g/dL (12.0-16.0); LYMPHOCYTES # (AUTO) 0.7 K/uL (2.5-16.5); LYMPHOCYTES % (AUTO) 31.4 % (20.5-51.1); MEAN CORPUSCULAR HEMOGLOBIN 28 pg (27-31); MEAN CORPUSCULAR HGB CONC 33 g/dL (33-37); MEAN CORPUSCULAR VOLUME 86.4 fL (80-94); MONOCYTES # (AUTO) 0.2 K/uL (0.8-1.0); MONOCYTES % (AUTO) 9.2 % (1.7-9.3); NEUTROPHILS # (AUTO) 1.2 K/uL (1.8-7.7); NEUTROPHILS % (AUTO) 57.8 % (42.2-75.2); PLATELET COUNT (AUTO) 139 K/uL (140-450); RED CELL DISTRIBUTION WIDTH 16.9 % (11.6-13.7); WHITE BLOOD COUNT (AUTO) 2.1 K/uL (4.8-10.8)
[2019-12-06 09:15] LABS: ALBUMIN 3.3 g/dL (3.4-5.0); ANION GAP 11.3 (8-16); CARBON DIOXIDE 23.6 mmol/L (21-32); CREATININE 0.8 mg/dL (0.6-1.3); POTASSIUM 3.9 mmol/L (3.5-5.1); TOTAL BILIRUBIN 0.4 mg/dL (0.0-1.0)
[2019-12-06 10:28] VITALS: BP 111/68
[2019-12-07 09:08] LABS: LACTATE DEHYDROGENASE 151 IU/L (119-226)
[2019-12-09 06:10] LABS: LD1 FRACTION 29 % (17-32); LD2 FRACTION 30 % (25-40); LD3 FRACTION 23 % (17-27); LD4 FRACTION 10 % (5-13); LD5 FRACTION 8 % (4-20)
== END 2019-12-06 10:28 | disposition home or self-care (01) ==
LOC: EEVIPCON 07:36 → MED 07:36
DX: R05 Cough (principal); R07.9 Chest pain, unspecified; I51.89 Other ill-defined heart diseases; Z79.899 Other long term (current) drug therapy
CPT/HCPCS: 36415; 71045; 80053; 83625; 83880; 84484; 84702; 85025; 86140; 93005; 99285; Q0092

== ENCOUNTER 2020-05-24 13:53 | Emergency (ER) | payer OTHER, SELFPAY ==
[~2020-05-24] VITALS: Ht 177.8 cm; Wt 63.5 kg
[2020-05-24 13:57] VITALS: BP 125/79
[2020-05-24 15:07] VITALS: BP 125/79
== END 2020-05-24 15:08 | disposition home or self-care (01) ==
LOC: MED 13:53
DX: S40.862A Insect bite (nonvenomous) of left upper arm, initial encounter (principal); R21 Rash and other nonspecific skin eruption; R03.0 Elevated blood-pressure reading, without diagnosis of hypertension; I51.89 Other ill-defined heart diseases; F17.200 Nicotine dependence, unspecified, uncomplicated; Z79.899 Other long term (current) drug therapy; W57.XXXA Bitten or stung by nonvenomous insect and other nonvenomous arthropods, initial encounter; Y93.89 Activity, other specified; Y92.89 Other specified places as the place of occurrence of the external cause; Y99.8 Other external cause status
CPT/HCPCS: 99283

== ENCOUNTER 2022-06-06 23:20 | Emergency (ER) | payer OTHER ==
[~2022-06-06] VITALS: Ht 175.3 cm; Wt 66.7 kg
[~2022-06-06 23:20] MED LIST changes: +CHOL100084 PO; -VITD1000 PO
[2022-06-07 00:19] VITALS: BP 141/99
--- NOTE | 2022-06-07 00:23 | NUR ---
PT TRIAGED AND VSS, PT SENT TO LOBBY.
--- NOTE | 2022-06-07 01:46 | NUR ---
PT TAKEN TO CHAIR
[2022-06-07] MEDS ORDERED: KETOROLAC 30 MG/ML VIAL IM ONE (02:20)
[2022-06-07] MEDS ORDERED: ACETAMINOPHEN EXTRA STRENGTH 500 MG TAB PO ONE (02:20)
--- NOTE | 2022-06-07 02:30 | NUR ---
Patient lying in bed, Awake, chest rise and fall symmetrical, no c/o pain, no s/s of distress Addendum: 06/07/22 at 0300 by [email or web address] Patient sitting in chair, A/Ox4, chest rise and fall symmetrical, no c/o pain, no s/s of distress
[2022-06-07] MEDS ORDERED: ACET-10509 PO (02:53)
[2022-06-07] MEDS ORDERED: IBUP-2217 PO (02:53)
[2022-06-07 02:58] VITALS: BP 121/84
== END 2022-06-07 03:01 | disposition home or self-care (01) ==
LOC: MED 23:20
DX: S10.11XA Abrasion of throat, initial encounter (principal); I25.10 Atherosclerotic heart disease of native coronary artery without angina pectoris; V49.88XA Car occupant (driver) (passenger) injured in other specified transport accidents, initial encounter; Y93.89 Activity, other specified; Y92.89 Other specified places as the place of occurrence of the external cause; Y99.8 Other external cause status
CPT/HCPCS: 96372; 99283; J1885

== ENCOUNTER 2023-12-23 04:40 | Emergency (ER) | payer OTHER ==
[~2023-12-23] VITALS: Ht 175.3 cm; Wt 65.8 kg
[~2023-12-23 04:40] MED LIST changes: +ACET-10509 PO; +HYDR-5458 PO; -HYDR200T5 PO; +IBUP-2217 PO
[2023-12-23 04:49] VITALS: BP 128/87; PULSE 80; RESP 16; TEMP 98.1; O2SAT 98
[2023-12-23] MEDS ORDERED: PRED50TA2 PO (06:19)
[2023-12-23] MEDS: predniSONE 20 MG TAB PO ONE (06:32)
[2023-12-23] MEDS: BACITRACIN OINT 500 UNITS/GM PKT TP ONE (06:33)
[2023-12-23] MEDS: ACETAMINOPHEN EXTRA STRENGTH 500 MG TAB PO ONE (06:33)
[2023-12-23] MEDS: KETOROLAC 30 MG/ML VIAL IM ONE (06:33)
== END 2023-12-23 06:34 | disposition home or self-care (01) ==
LOC: MED 04:40
DX: M32.9 Systemic lupus erythematosus, unspecified (principal); R50.9 Fever, unspecified; R11.2 Nausea with vomiting, unspecified; R42 Dizziness and giddiness; R07.9 Chest pain, unspecified; R06.02 Shortness of breath; Z95.818 Presence of other cardiac implants and grafts; Z79.1 Long term (current) use of non-steroidal anti-inflammatories (NSAID); Z79.01 Long term (current) use of anticoagulants; Z79.82 Long term (current) use of aspirin; Z79.899 Other long term (current) drug therapy
CPT/HCPCS: 96372; 99284; J1885; J7512

== ENCOUNTER 2024-05-11 14:57 | Emergency (ER) | payer OTHER ==
[~2024-05-11] VITALS: Ht 172.7 cm; Wt 68.0 kg
[~2024-05-11 14:57] MED LIST changes: -ACET-10509 PO; +ACET500T99 PO; +PRED50TA2 PO
[2024-05-11 15:09] VITALS: BP 122/72; PULSE 102; RESP 18; TEMP 97.8; O2SAT 99
[2024-05-11] MEDS: KETOROLAC 30 MG/ML VIAL IM ONE (16:26)
[2024-05-11] MEDS ORDERED: IBUP-2213 PO (16:32)
[2024-05-11] MEDS ORDERED: LID5T TP (16:32)
[2024-05-11] MEDS ORDERED: METH-1681 PO (16:32)
== END 2024-05-11 16:50 | disposition home or self-care (01) ==
LOC: MED 14:57
DX: S16.1XXA Strain of muscle, fascia and tendon at neck level, initial encounter (principal); S29.012A Strain of muscle and tendon of back wall of thorax, initial encounter; M79.18 Myalgia, other site; M25.511 Pain in right shoulder; M25.512 Pain in left shoulder; Z95.5 Presence of coronary angioplasty implant and graft; Z79.899 Other long term (current) drug therapy; Z79.82 Long term (current) use of aspirin; Z79.01 Long term (current) use of anticoagulants; V89.2XXA Person injured in unspecified motor-vehicle accident, traffic, initial encounter; Y93.89 Activity, other specified; Y92.410 Unspecified street and highway as the place of occurrence of the external cause; Y99.8 Other external cause status
CPT/HCPCS: 96372; 99283; J1885